=== PATIENT | female | born 1950 | race Caucasian/White ===

== ENCOUNTER 2018-01-01 10:00 | Inpatient (IN) | payer MEDICARE ==
[~2018-01-01] VITALS: Ht 170.2 cm; Wt 90.6 kg
[2018-01-01] MEDS ORDERED: LOVA40TA2 PO (10:27)
[2018-01-01] MEDS ORDERED: meloxicam PO (10:27)
[2018-01-01] MEDS ORDERED: BP med (10:33)
[2018-01-01] MEDS ORDERED: VENL37.57 PO (10:33)
[2018-01-01 10:45] LABS: MICROSCOPIC AUTO
[2018-01-01 10:46] LABS: MEAN CORPUSCULAR HEMOGLOBIN 32.4 pg (27.0-34.8); MEAN CORPUSCULAR HGB CONC 33.9 g/dL (32.4-35.8); MEAN CORPUSCULAR VOLUME 95.5 fL (80-100); MEAN PLATELET VOLUME 8.2 fL (7.4-10.4); PLATELET COUNT 288 x10^3/uL (130-400); RED BLOOD COUNT 4.31 x10^6/uL (3.82-5.3); RED CELL DISTRIBUTION WIDTH 12.1 % (9.6-15.2)
[2018-01-01 10:51] LABS: BASOPHILS # (AUTO) 0.02 x10^3/uL (0-0.1); BASOPHILS % (AUTO) 0 % (0-1); EOSINOPHILS % (AUTO) 2 % (1-7); LYMPHOCYTES # (AUTO) 2.05 x10^3/uL (1-3.4); LYMPHOCYTES % (AUTO) 37 % (22-44); MONOCYTES # (AUTO) 0.43 x10^3/uL (0.2-0.8); MONOCYTES % (AUTO) 8 % (2-9); NEUTROPHILS # (AUTO) 2.88 x10^3/uL (1.8-6.8); NEUTROPHILS % (AUTO) 53 % (42-75)
[2018-01-01 10:52] LABS: ALANINE AMINOTRANSFERASE 34 U/L (12-78); ALBUMIN 3.9 g/dL (3.4-5.0); ANION GAP 6 mmol/L (5-15); CALCIUM 8.8 mg/dL (8.5-10.1); CHLORIDE 103 mmol/L (98-107); CREATININE 0.73 mg/dL (0.55-1.02)
[2018-01-01 10:52] LABS: CULTURE INDICATED? YES
[2018-01-01 10:54] LABS: ALKALINE PHOSPHATASE 81 U/L (45-117); BILIRUBIN,TOTAL 0.9 mg/dL (0.2-1.0); TOTAL PROTEIN 7.3 g/dL (6.4-8.2)
[2018-01-01 10:56] LABS: MD NO
[2018-01-01 11:08] LABS: INTERNATIONAL NORMALIZED RATIO 0.95 (0.93-1.1); PROTHROMBIN TIME 9.9 Seconds (9.6-11.5)
[2018-01-06] MEDS ORDERED: THROMBIN 5,000 UNIT VIAL TP ONE (06:59)
[2018-01-06] MEDS ORDERED: BACITRACIN 50,000 UNIT ONE (06:59)
[2018-01-06] MEDS ORDERED: BUPIVACAINE/PF-EPI 0.5% 1:200K ONE ×2 (06:59→09:49)
[2018-01-06] MEDS ORDERED: LACTATED RINGERS 1,000 ML IV SCH (10:38)
[2018-01-06 10:41] VITALS: BP 125/84
[2018-01-06] MEDS ORDERED: PROPOFOL 150 ML ONE (11:58)
[2018-01-06] MEDS ORDERED: FAMOTIDINE 20 MG TABLET PO ONE (12:00)
[2018-01-06] MEDS ORDERED: ACETAMINOPHEN 500 MG TABLET PO ONE (12:00)
[2018-01-06] MEDS ORDERED: OxyconTIN ER 10 MG TAB.ER PO ONE (12:00)
[2018-01-06] MEDS ORDERED: FENTANYL PF 250 MCG/5ML ONE ×2 (12:06→13:46)
[2018-01-06] MEDS ORDERED: KETAMINE 10 MG/ML, 20ML ONE (12:09)
[2018-01-06] MEDS ORDERED: EPHEDRINE 50 MG/ML, 1ML ONE (12:26)
[2018-01-06] MEDS ORDERED: PHENYLEPHRINE 10 MG/ML ONE (12:26)
[2018-01-06] MEDS ORDERED: DIAZEPAM 5 MG/ML, 2ML IVPush PRN (12:30)
[2018-01-06] MEDS ORDERED: PROMETHAZINE 25 MG/ML, 1ML IV PRN (12:30)
[2018-01-06] MEDS ORDERED: HYDROmorphone 1 MG/ML, 1ML IV PRN (12:30)
[2018-01-06] MEDS ORDERED: ONDANSETRON 2MG/ML, 2ML IV PRN (12:30)
[2018-01-06] MEDS ORDERED: MEPERIDINE/PF 25MG/0.5ML IVPush PRN (12:30)
[2018-01-06] MEDS ORDERED: OXYcodone 5 MG/5 ML ORAL.SOL UDC PO PRN (12:30)
[2018-01-06] MEDS ORDERED: LORazepam 2 MG/ML, 1ML IVPush PRN (12:30)
[2018-01-06] MEDS ORDERED: ONDANSETRON ODT 8 MG PO PRN (12:30)
[2018-01-06] MEDS ORDERED: LABETALOL 5MG/ML, 20ML IV PRN (12:30)
[2018-01-06] MEDS ORDERED: MIDAZOLAM 1 MG/ML, 2ML ONE (13:45)
[2018-01-06] MEDS ORDERED: VANCOMYCIN 1,000 MG ONE (14:36)
[2018-01-06] MEDS ORDERED: NEOSTIGMINE 1 MG/ML, 10ML ONE (14:41)
[2018-01-06] MEDS ORDERED: DEXAMETHASONE 4 MG/ML, 1ML ONE (14:41)
[2018-01-06] MEDS ORDERED: ROCURONIUM 10MG/ML,5ML ONE (14:41)
[2018-01-06] MEDS ORDERED: PROPOFOL 10 MG/ML, 20ML ONE (14:41)
[2018-01-06] MEDS ORDERED: ONDANSETRON 2MG/ML, 2ML ONE (14:41)
[2018-01-06] MEDS ORDERED: CEFAZOLIN 1,000 MG ONE (14:41)
[2018-01-06] MEDS ORDERED: GLYCOPYRROLATE 0.2MG/1ML, 5ML ONE (14:41)
[2018-01-06] MEDS ORDERED: SUCCINYLCHOLINE 20 MG/ML, 10ML ONE (14:41)
[2018-01-06] MEDS ORDERED: PHARMACY MAY ADJ FOR RENAL FX MC PRN (15:30)
[2018-01-06] MEDS ORDERED: PROMETHAZINE 25 MG/ML, 1ML IM PRN (15:30)
[2018-01-06] MEDS ORDERED: DIPHENHYDRAMINE 50 MG/ML, 1ML IVPush PRN (15:30)
[2018-01-06] MEDS ORDERED: ONDANSETRON 2MG/ML, 2ML IVPush PRN (15:30)
[2018-01-06] MEDS ORDERED: LABETALOL 5MG/ML, 20ML IVPush PRN (15:30)
[2018-01-06] MEDS ORDERED: MEPERIDINE/PF 100 MG/ML IM PRN (15:30)
[2018-01-06] MEDS ORDERED: BISACODYL 10 MG SUPP PR PRN (15:30)
[2018-01-06] MEDS ORDERED: MAGNESIUM HYDROXIDE 8%, 30ML UDC PO PRN (15:30)
[2018-01-06] MEDS ORDERED: HYDROmorphone 1 MG/ML, 1ML IVPush PRN (15:30)
[2018-01-06] MEDS ORDERED: DIAZEPAM 5 MG TABLET PO PRN (15:30)
[2018-01-06] MEDS ORDERED: FENTANYL PF 100 MCG/2ML ONE (15:36)
[2018-01-06] MEDS ORDERED: OXYcodone 5 MG/5 ML ORAL.SOL UDC ONE (15:36)
[2018-01-06] MEDS: FENTANYL PF 100 MCG/2ML IV PRN ×2 (15:39→15:55)
[2018-01-06] MEDS ORDERED: METHOCARBAMOL 750 MG TABLET ONE (15:58)
[2018-01-06] MEDS: METHOCARBAMOL 750 MG TABLET PO SCH ×2 (16:00→21:49)
[2018-01-06 17:51] VITALS: BP 112/67
[2018-01-06] MEDS: SODIUM CHLORIDE FLUSH 10ML SYR IVF SCH (20:00)
[2018-01-06 20:07] VITALS: BP 104/65
[2018-01-06] MEDS: NS + 20MEQ KCL 1,000 ML IV SCH (21:48)
[2018-01-06] MEDS: CEFAZOLIN PMX 1GM/50ML 50 ML IVPB SCH (21:48)
[2018-01-06] MEDS: LOVASTATIN 40 MG TABLET PO SCH (21:48)
[2018-01-06] MEDS ORDERED: TELM80TA5 PO (21:55)
[2018-01-07 00:15] VITALS: BP 111/66
[2018-01-07 03:09] VITALS: BP 111/71
[2018-01-07] MEDS: NS + 20MEQ KCL 1,000 ML IV SCH ×2 (04:19→14:07)
[2018-01-07 05:09] LABS: BASOPHILS # (AUTO) 0.01 x10^3/uL (0-0.1); BASOPHILS % (AUTO) 0 % (0-1); EOSINOPHILS % (AUTO) 0 % (1-7); LYMPHOCYTES # (AUTO) 0.85 x10^3/uL (1-3.4); LYMPHOCYTES % (AUTO) 7 % (22-44); MD NO; MEAN CORPUSCULAR HEMOGLOBIN 33.1 pg (27.0-34.8); MEAN CORPUSCULAR HGB CONC 34.1 g/dL (32.4-35.8); MEAN PLATELET VOLUME 8.4 fL (7.4-10.4); MONOCYTES # (AUTO) 0.69 x10^3/uL (0.2-0.8); MONOCYTES % (AUTO) 6 % (2-9); NEUTROPHILS % (AUTO) 87 % (42-75); PLATELET COUNT 249 x10^3/uL (130-400); RED BLOOD COUNT 3.66 x10^6/uL (3.82-5.3); RED CELL DISTRIBUTION WIDTH 12.7 % (9.6-15.2)
[2018-01-07 05:13] LABS: ANION GAP 9 mmol/L (5-15); CALCIUM 8.5 mg/dL (8.5-10.1); CHLORIDE 102 mmol/L (98-107)
[2018-01-07] MEDS: METHOCARBAMOL 750 MG TABLET PO SCH ×4 (06:01→20:41)
[2018-01-07] MEDS: CEFAZOLIN PMX 1GM/50ML 50 ML IVPB SCH (06:02)
[2018-01-07 07:24] VITALS: BP 128/77
[2018-01-07] MEDS: SODIUM CHLORIDE FLUSH 10ML SYR IVF SCH ×2 (08:40→20:41)
[2018-01-07] MEDS: SENNA/DOCUSATE TABLET PO SCH (08:41)
[2018-01-07] MEDS: VENLAFAXINE 37.5MG TABLET PO SCH (08:41)
[2018-01-07] MEDS: OXYcodone/APAP 10/325MG TABLET PO PRN ×3 (08:42→18:37)
[2018-01-07 12:39] VITALS: BP 122/73
[2018-01-07 20:00] VITALS: BP 113/69
[2018-01-07] MEDS: LOVASTATIN 40 MG TABLET PO SCH (20:41)
[2018-01-08 03:54] VITALS: BP 145/81
[2018-01-08] MEDS: OXYcodone/APAP 10/325MG TABLET PO PRN ×5 (04:48→22:05)
[2018-01-08 05:10] LABS: BASOPHILS # (AUTO) 0.07 x10^3/uL (0-0.1); BASOPHILS % (AUTO) 1 % (0-1); EOSINOPHILS # (AUTO) 0.03 x10^3/uL (0-0.4); EOSINOPHILS % (AUTO) 0 % (1-7); LYMPHOCYTES # (AUTO) 1.67 x10^3/uL (1-3.4); LYMPHOCYTES % (AUTO) 16 % (22-44); MD NO; MEAN CORPUSCULAR HEMOGLOBIN 32.1 pg (27.0-34.8); MEAN CORPUSCULAR HGB CONC 33.8 g/dL (32.4-35.8); MEAN PLATELET VOLUME 8.2 fL (7.4-10.4); MONOCYTES # (AUTO) 0.81 x10^3/uL (0.2-0.8); MONOCYTES % (AUTO) 8 % (2-9); NEUTROPHILS # (AUTO) 7.66 x10^3/uL (1.8-6.8); NEUTROPHILS % (AUTO) 75 % (42-75); PLATELET COUNT 212 x10^3/uL (130-400); RED CELL DISTRIBUTION WIDTH 12.1 % (9.6-15.2)
[2018-01-08 05:21] LABS: ANION GAP 6 mmol/L (5-15); CALCIUM 8.4 mg/dL (8.5-10.1); CHLORIDE 98 mmol/L (98-107); CREATININE 0.51 mg/dL (0.55-1.02)
[2018-01-08 08:32] VITALS: BP 112/73
[2018-01-08] MEDS: SODIUM CHLORIDE FLUSH 10ML SYR IVF SCH ×2 (09:29→22:06)
[2018-01-08] MEDS: SENNA/DOCUSATE TABLET PO SCH (09:29)
[2018-01-08] MEDS: VENLAFAXINE 37.5MG TABLET PO SCH (09:29)
[2018-01-08] MEDS: METHOCARBAMOL 750 MG TABLET PO SCH ×4 (09:29→22:05)
[2018-01-08] MEDS: NS + 20MEQ KCL 1,000 ML IV SCH ×3 (10:00→23:30)
[2018-01-08 12:58] VITALS: BP 106/71
[2018-01-08 18:56] VITALS: BP 145/81
[2018-01-08 19:02] VITALS: BP 109/86
[2018-01-08] MEDS: LOVASTATIN 40 MG TABLET PO SCH (22:05)
[2018-01-09 02:45] VITALS: BP 119/73
[2018-01-09] MEDS: OXYcodone/APAP 10/325MG TABLET PO PRN ×5 (04:23→19:01)
[2018-01-09 05:26] LABS: BASOPHILS # (AUTO) 0.02 x10^3/uL (0-0.1); BASOPHILS % (AUTO) 0 % (0-1); EOSINOPHILS # (AUTO) 0.09 x10^3/uL (0-0.4); EOSINOPHILS % (AUTO) 1 % (1-7); LYMPHOCYTES % (AUTO) 28 % (22-44); MD NO; MEAN CORPUSCULAR HEMOGLOBIN 31.6 pg (27.0-34.8); MEAN CORPUSCULAR HGB CONC 33.3 g/dL (32.4-35.8); MEAN CORPUSCULAR VOLUME 95.1 fL (80-100); MEAN PLATELET VOLUME 8.4 fL (7.4-10.4); MONOCYTES # (AUTO) 0.76 x10^3/uL (0.2-0.8); MONOCYTES % (AUTO) 9 % (2-9); NEUTROPHILS # (AUTO) 5.37 x10^3/uL (1.8-6.8); NEUTROPHILS % (AUTO) 62 % (42-75); PLATELET COUNT 199 x10^3/uL (130-400); RED BLOOD COUNT 3.42 x10^6/uL (3.82-5.3)
[2018-01-09] MEDS: METHOCARBAMOL 750 MG TABLET PO SCH (05:44)
[2018-01-09 05:46] LABS: ANION GAP 4 mmol/L (5-15); CALCIUM 8.3 mg/dL (8.5-10.1); CHLORIDE 99 mmol/L (98-107); CREATININE 0.52 mg/dL (0.55-1.02)
[2018-01-09] MEDS: SENNA/DOCUSATE TABLET PO SCH (07:21)
[2018-01-09] MEDS: SODIUM CHLORIDE FLUSH 10ML SYR IVF SCH ×2 (07:21→20:18)
[2018-01-09] MEDS: VENLAFAXINE 37.5MG TABLET PO SCH (07:21)
[2018-01-09 07:22] VITALS: BP 117/71
[2018-01-09 08:00] VITALS: BP 130/79
[2018-01-09] MEDS: NS + 20MEQ KCL 1,000 ML IV SCH ×2 (08:45→18:45)
[2018-01-09] MEDS: TIZANIDINE 4MG TABLET PO PRN ×2 (10:24→22:18)
[2018-01-09 14:13] VITALS: BP 90/54
[2018-01-09 15:25] VITALS: BP 94/64
[2018-01-09 18:49] VITALS: BP 109/68
[2018-01-09] MEDS: LOVASTATIN 40 MG TABLET PO SCH (20:22)
[2018-01-10] MEDS: OXYcodone/APAP 10/325MG TABLET PO PRN ×4 (00:12→13:33)
[2018-01-10 00:47] VITALS: BP 99/86
[2018-01-10] MEDS: NS + 20MEQ KCL 1,000 ML IV SCH ×2 (04:45→13:34)
[2018-01-10 05:20] LABS: BASOPHILS # (AUTO) 0.02 x10^3/uL (0-0.1); BASOPHILS % (AUTO) 0 % (0-1); EOSINOPHILS # (AUTO) 0.14 x10^3/uL (0-0.4); EOSINOPHILS % (AUTO) 2 % (1-7); LYMPHOCYTES # (AUTO) 2.23 x10^3/uL (1-3.4); LYMPHOCYTES % (AUTO) 27 % (22-44); MD NO; MEAN CORPUSCULAR HEMOGLOBIN 32.8 pg (27.0-34.8); MEAN CORPUSCULAR HGB CONC 34.2 g/dL (32.4-35.8); MEAN CORPUSCULAR VOLUME 95.9 fL (80-100); MEAN PLATELET VOLUME 8.8 fL (7.4-10.4); MONOCYTES # (AUTO) 0.71 x10^3/uL (0.2-0.8); MONOCYTES % (AUTO) 9 % (2-9); NEUTROPHILS # (AUTO) 5.27 x10^3/uL (1.8-6.8); NEUTROPHILS % (AUTO) 63 % (42-75); PLATELET COUNT 195 x10^3/uL (130-400); RED BLOOD COUNT 3.01 x10^6/uL (3.82-5.3); RED CELL DISTRIBUTION WIDTH 12.3 % (9.6-15.2)
[2018-01-10 05:24] LABS: ANION GAP 6 mmol/L (5-15); CALCIUM 8.3 mg/dL (8.5-10.1); CHLORIDE 100 mmol/L (98-107)
[2018-01-10 07:21] VITALS: BP 139/85
[2018-01-10] MEDS: TIZANIDINE 4MG TABLET PO PRN ×2 (07:25→13:33)
[2018-01-10] MEDS: VENLAFAXINE 37.5MG TABLET PO SCH (09:26)
[2018-01-10] MEDS: SODIUM CHLORIDE FLUSH 10ML SYR IVF SCH (09:27)
[2018-01-10] MEDS: SENNA/DOCUSATE TABLET PO SCH (09:27)
[2018-01-10 13:28] VITALS: BP 99/66
[2018-01-10] MEDS ORDERED: OXYC-307 PO (14:05)
[2018-01-10] MEDS ORDERED: TIZA2CAP2 PO (14:05)
[2018-01-10] MEDS ORDERED: DIAZ5TAB PO (14:07)
== END 2018-01-10 16:35 | disposition home health service (06) | DRG 472 ==
LOC: EDSTATUS 01-03 08:00 → ORIP 01-06 09:32 → 4NOR 01-06 17:09
PROVIDERS: ADMIT Neurological Surgery; ATTEND Neurological Surgery
PROC: 0RG4071 Fusion of Cervicothoracic Vertebral Joint with Autologous Tissue Substitute, Posterior Approach, Posterior Column, Open Approach (ICD-10-PCS; 2018-01-06)
PROC: 4A11X4G Monitoring of Peripheral Nervous Electrical Activity, Intraoperative, External Approach (ICD-10-PCS; 2018-01-06)
PROC: 0RG2071 Fusion of 2 or more Cervical Vertebral Joints with Autologous Tissue Substitute, Posterior Approach, Posterior Column, Open Approach (ICD-10-PCS; principal; 2018-01-06 12:30)
DX: M47.12 Other spondylosis with myelopathy, cervical region (principal); M50.021 Cervical disc disorder at C4-C5 level with myelopathy; M48.02 Spinal stenosis, cervical region; I10 Essential (primary) hypertension; Z82.61 Family history of arthritis; Z82.49 Family history of ischemic heart disease and other diseases of the circulatory system; Z88.6 Allergy status to analgesic agent
CPT/HCPCS: 36415; 71046; 72040; 72052; 80048; 80053; 81001; 85025; 85610; 85730; 86850; 86900; 87077; 87086; 87186; 93005; 95938; 95941; C1713; J0690; J1100; J2250; J2270; J2405; J2704; J2710; J3010; J3370; J3480; J3490; J0330; J2370